=== PATIENT | male | born 1950 | race Caucasian/White ===

== ENCOUNTER 2018-04-17 12:41 | Observation (INO) ==
--- NOTE | 2018-04-17 13:50 | Emergency Department Note ---
Disposition Clinical Impression: Dizziness, Ataxia Disposition: Admitted As Inpatient Condition: Fair General Adult HPI - General Chief complaint: ED Dizziness Stated complaint: Vertigo Time Seen by Provider: 04/17/18 12:59 Source: patient, family Limitations: no limitations Nursing Notes Reviewed: Yes Vital Signs Reviewed: Yes - History of Present Illness HPI Narrative: Pt is a 67 year old male presenting to the emergency department for a 2 day complaint of dizziness associated with mild nausea w/o vomiting. Pt is a commercial trunk combine driver and states starting feeling the cab spinning around him and pulled over and was unable to continue driving and had to be driven home by family. Pt states previous history of vertigo that he states feels similar to his current presentation and denies any chest pain, sob, neurological deficits, lightheadness, syncope, vomiting, diarrhea or headaches. Otherwise pt denies any other complaints at this encounter and denies taking any medication to this point for the dizziness or nausea. The history, physical exam, and medical decision making was performed by the medical student either while I was physically present and actively involved or I personally re-performed the exam and medical decision making. I have verified the accuracy of the medical student's documentation with regards to the history, physical exam findings, and medical decision making. 67-year-old male presents emergency department for concern for today complaining of dizziness associated with nausea vomiting. Patient states that he feels as if the room is spinning. This been going on for couple days. Patient has been falling more frequently last couple weeks. Patient reports some blurry vision changes. Patient denies any fevers, but does report vomiting and nausea. Onset (ago): day(s) Location: head Radiation: non-radiation Pain Severity: mild Pain Scale: 0 - Related Data Home Medications Medication Instructions Recorded Confirmed Omeprazole [PriLOSEC] 20 mg PO BIDAC 10/17/15 04/17/18 Citalopram [CeleXA] 20 mg PO DAILY 04/17/18 04/17/18 Losartan Potassium [Cozaar] 50 mg PO DAILY 04/17/18 04/17/18 Meloxicam 7.5 mg PO DAILY 04/17/18 04/17/18 Allergies Allergy/AdvReac Type Severity Reaction Status Date / Time No Known Allergies Allergy Verified 04/17/18 12:49 All systems ED: reviewed and negative except as stated. Review of Systems: As Per HPI Constitutional: Denies: fever, chills, weakness, night sweats Eyes: Reports: vision change (Blurry vision). Denies: eye pain, eye discharge ENT ED: Denies: ear pain, throat pain, dental pain, hearing loss Cardiovascular: Denies: chest pain, palpitations, dyspnea on exertion, orthopnea Respiratory: Denies: cough, dyspnea, wheezes Gastrointestinal: Reports: nausea. Denies: abdominal pain, vomiting, diarrhea Genitourinary: Denies: urgency, dysuria, frequency, hematuria Musculoskeletal: Denies: back pain, neck pain, joint swelling Integumentary: Denies: rash Neurological: Reports: vertigo. Denies: headache, weakness, numbness, paresthesias, confusion Psychiatric: Denies: anxiety, depression, suicidal thoughts, homicidal thoughts Endocrine: Denies: fatigue, heat or cold intolerance Past Medical History - Past Medical History Source: patient Medical history: Reports: no medical history, hypertension Psychiatric history: Reports: depression - Social History Smoking Status: Never smoker Smokeless Tobacco Status: No Alcohol use: Reports: none Drug use: Reports: none Physical Exam - General Limitations: no limitations General appearance: alert, in no apparent distress - Head Head exam: atraumatic, normocephalic - Eye Eye exam: Present: PERRL, EOMI, nystagmus (horizontal nystagmus bilateral). Absent: conjunctival injection - ENT ENT exam: normal exam, normal oropharynx, mucous membranes moist, TM's normal bilaterally, normal external ear exam, other (Positive Rocky Hallpike Maneuver ) - Neck Neck exam: Present: normal inspection, trachea midline - Chest Chest inspection: Present: normal inspection, symmetric chest wall rise - Respiratory Respiratory exam: Present: normal lung sounds bilaterally. Absent: respiratory distress, wheezes, stridor - Cardiovascular Cardiovascular exam: Present: regular rate, normal rhythm, normal heart sounds - Abdominal Exam Abdominal exam: Present: soft, Non-Tender, normal bowel sounds - Extremities Exam Extremities exam: Present: normal capillary refill - Back Exam Back exam: Present: full ROM - Neurological Exam Neurological exam: Present: alert, oriented X3, CN II-XII intact, other (GCS 15, no pronator drift, normal finger to nose. No focal neurologic deficits left- sided nystagmus.). Absent: motor sensory deficit - Psychiatric Psychiatric exam: Present: normal affect, normal mood - Skin Skin exam: Present: warm, intact Course Vital Signs Temperature 97.8 F 04/17/18 12:48 Pulse Rate 76 04/17/18 12:48 Respiratory Rate 18 04/17/18 12:48 Blood Pressure 159/101 04/17/18 12:48 O2 Sat by Pulse Oximetry 99 04/17/18 12:48 Temperature 97.7 F 04/17/18 20:46 Pulse Rate 72 04/17/18 20:46 Respiratory Rate 16 04/17/18 20:46 Blood Pressure 146/91 04/17/18 20:46 O2 Sat by Pulse Oximetry 95 04/17/18 20:46 Oxygen Delivery Oxygen Delivery Room Air Medical Decision Making - MDM Narrative Medical decision making narrative: 67-year-old male presents to the emergency department with concern for vertigo, nausea, vomiting, inability to ambulate. Patient was given meclizine as well as Valium here in the emergency department help with the symptoms and fluids. This is not helping his of his symptoms. Patient did not have any neurologic deficits on exam. GCS is 15. Do not have any pronator drift. NIH was 0. F andrew to nose was normal as well. We will obtain MRI of the brain as well as of the neck for concern for posterior stroke. There was no evidence of any posterior stroke. However, on head MRI there was a prominent appearing pituitary gland which could represent pituitary macroadenoma per radiology. Her recommendations to get a dedicated MRI the sella. I spoke with neurology, Dr. Gil on the phone. He stated that the symptoms of the patient's having it would be inconsistent with the possibility of a macroadenoma. He did agree to consult on the case. Patient was ambulated here in the emergency department, and did not tolerate it. He was not even able to leave the room. At that time, it was discussed with family patient at bedside about admission. They agreed with the plan as they were concerned that patient may fall at home. Patient admitted to the hospitalist. Patient hemogram crit stable, not in any acute distress. I ordered more medications at time of admission. Brain MRI 04/17/18 00:00 IMPRESSION: No acute infarct. No flow limiting stenosis or branch occlusion detected within the head or neck. Prominent appearing pituitary gland which could present pituitary macroadenoma. Recommend dedicated MRI of the sella with and without contrast for further evaluation. D/ / Juan Pineda MD / Juan Pineda MD Interpreting Provider: Juan Pineda MD Head MRA 04/17/18 15:20 IMPRESSION: No acute infarct. No flow limiting stenosis or branch occlusion detected within the head or neck. Prominent appearing pituitary gland which could present pituitary macroadenoma. Recommend dedicated MRI of the sella with and without contrast for further evaluation. D/ / Juan Pineda MD / Juan Pineda MD Interpreting Provider: Juan Pineda MD Neck MRA 04/17/18 15:20 IMPRESSION: No acute infarct. No flow limiting stenosis or branch occlusion detected within the head or neck. Prominent appearing pituitary gland which could present pituitary macroadenoma. Recommend dedicated MRI of the sella with and without contrast for further evaluation. D/ / Juan Pineda MD / Juan Pineda MD Interpreting Provider: Juan Pineda MD - Lab Data Result diagrams: 04/17/18 15:21 04/17/18 15:21 Lab Results 04/17/18 04/17/18 04/17/18 Range/Units 13:39 15:21 15:21 WBC 8.9 (4.3-11.1) K/mcL RBC 5.41 (4.19-5.50) M/mcL Hgb 16.6 (12.9-16.9) g/dL Hct 49.1 (37.5-50.1) % MCV 90.8 (83.0-100.0) fL MCH 30.7 (28.0-33.3) pg MCHC 33.8 (31.6-35.5) g/dL RDW 14.2 (11.5-14.5) % Plt Count 167 (140-400) K/mcL MPV 9.6 (9.4-12.4) fL Immature Gran % 0.6 (0-4) % Seg Neutrophils % 62.8 % Lymphocytes % 27.0 % Monocytes % 6.3 % Eosinophils % 2.7 % Basophils % 0.6 % Neutrophils # 5.6 (1.6-8.9) K/mcL Lymphocytes # 2.4 (0.6-4.6) K/mcL Monocytes # 0.6 (0.0-1.3) K/mcL Eosinophils # 0.2 (0.0-0.6) K/mcL Basophils # 0.1 (0.0-0.2) K/mcL Sodium 138 (136-145) mEq/L Potassium 4.0 (3.5-5.1) mEq/L Chloride 102 (98-107) mEq/L Carbon Dioxide 29 (23-29) mEq/L BUN 25 H (8-23) mg/dL Creatinine 0.90 (0.70-1.30) mg/dL Est GFR ( Amer) > 60 (> 60) Est GFR (Non-Af Amer) > 60 (> 60) BUN/Creatinine Ratio 28 H (6-26) Glucose 101 (70-105) mg/dL POC Glucose 108 H (70-99) mg/dL Calculated Osmolality 291 (280-300) Calcium 9.1 (8.6-10.3) mg/dL - EKG Data EKG #1 EKG attestation: Yes I reviewed and interpreted this EKG. EKG results narrative: 13:25 Rate 69 bpm, WI interval 148 ms, QRS duration 94 ms, QT 435 ms, left axis deviation. Sinus rhythm ventricular rate 69 beats for minute. No evidence of any ischemic ST changes on the EKG. No evidence of Bgrgi-[id number]-[id number] syndrome, hypertrophic cardiomyopathy, arithmetic right ventricular cart he myopathy, Brugada syndrome, QT prolongation. Attestation Statement - Attestation Attestation: I, Sb Martin DO, examined this patient [id number] and my medical decision-making was reviewed with Dr. Keven Bedoya, Resident Physician. I agree with the documented findings, disposition and treatment plan as described excep t to the extent set forth below. Please see my progress notes for details.
[2018-04-17] MEDS ORDERED: diazePAM 5 MG TABLET PO ONE ×2 (13:51→18:13)
[2018-04-17] MEDS ORDERED: Gadolinium Contrast Agent (WT Based) IV PRN (15:20)
--- NOTE | 2018-04-17 15:59 | Emergency Department Note ---
Disposition Clinical Impression: Dizziness, Ataxia Disposition: Admitted As Inpatient Condition: Fair Referrals: Evans Motta MD [Primary Care Provider] - Forms: ED Satisfaction Letter Time of Disposition: 19:34 General Adult HPI - General Chief complaint: ED Dizziness Stated complaint: Vertigo Time Seen by Provider: 04/17/18 12:59 Source: patient, family Limitations: no limitations - History of Present Illness Location: head Pain Scale: 0 - Related Data Home Medications Medication Instructions Recorded Confirmed Losartan [Cozaar] 25 mg PO DAILY 10/17/15 03/17/18 Omeprazole [PriLOSEC] 20 mg PO BIDAC 10/17/15 03/17/18 Previous Rx's Medication Instructions Recorded Benzonatate [Tessalon] 200 mg PO TID PRN #30 capsule 08/07/16 GuaiFENesin ER [Mucinex] 1,200 mg PO BID #20 tbbp.12hr 08/07/16 Benzonatate [Tessalon] 200 mg PO TID PRN #20 capsule 06/21/17 Fluticasone Propionate Nasal 1 spray NS DAILY #1 bottle 06/21/17 [Flonase] Cyclobenzaprine [Flexeril] 10 mg PO TID #15 tablet 10/24/17 Ibuprofen [Motrin] 600 mg PO Q6HR PRN #24 tab 10/24/17 Azithromycin [Azithromycin 6-Tab 250 mg PO PER PKG DI #6 tab 03/17/18 Pack] Benzonatate [Tessalon] 100 mg PO TID #30 capsule 03/17/18 Allergies Allergy/AdvReac Type Severity Reaction Status Date / Time No Known Allergies Allergy Verified 04/17/18 12:49 Constitutional: Denies: fever, chills, weakness, night sweats Eyes: Denies: eye pain, eye discharge, vision change ENT ED: Denies: ear pain, throat pain, dental pain, hearing loss Cardiovascular: Denies: chest pain, palpitations, dyspnea on exertion, orthopnea Respiratory: Denies: cough, dyspnea, wheezes Gastrointestinal: Reports: nausea. Denies: abdominal pain, vomiting, diarrhea Genitourinary: Denies: urgency, dysuria, frequency, hematuria Musculoskeletal: Denies: back pain, neck pain, joint swelling Integumentary: Denies: rash Neurological: Reports: vertigo. Denies: headache, weakness, numbness, paresthesias, confusion Psychiatric: Denies: anxiety, depression, suicidal thoughts, homicidal thoughts Endocrine: Denies: fatigue, heat or cold intolerance Past Medical History - Past Medical History Medical history: Reports: no medical history, hypertension Psychiatric history: Reports: depression - Social History Smoking Status: Never smoker Smokeless Tobacco Status: No Alcohol use: Reports: none Drug use: Reports: none Physical Exam - General Limitations: no limitations General appearance: alert, in no apparent distress Course Vital Signs Temperature 97.8 F 04/17/18 12:48 Pulse Rate 76 04/17/18 12:48 Respiratory Rate 18 04/17/18 12:48 Blood Pressure 159/101 04/17/18 12:48 O2 Sat by Pulse Oximetry 99 04/17/18 12:48 Temperature 97.8 F 04/17/18 13:14 Pulse Rate 76 04/17/18 13:14 Respiratory Rate 18 04/17/18 13:14 Blood Pressure 159/101 04/17/18 13:14 O2 Sat by Pulse Oximetry 99 04/17/18 13:14 Oxygen Delivery Oxygen Delivery Room Air Medical Decision Making - Lab Data Result diagrams: 04/17/18 15:21 04/17/18 15:21 Lab Results 04/17/18 04/17/18 04/17/18 Range/Units 13:39 15:21 15:21 WBC 8.9 (4.3-11.1) K/mcL RBC 5.41 (4.19-5.50) M/mcL Hgb 16.6 (12.9-16.9) g/dL Hct 49.1 (37.5-50.1) % MCV 90.8 (83.0-100.0) fL MCH 30.7 (28.0-33.3) pg MCHC 33.8 (31.6-35.5) g/dL RDW 14.2 (11.5-14.5) % Plt Count 167 (140-400) K/mcL MPV 9.6 (9.4-12.4) fL Immature Gran % 0.6 (0-4) % Seg Neutrophils % 62.8 % Lymphocytes % 27.0 % Monocytes % 6.3 % Eosinophils % 2.7 % Basophils % 0.6 % Neutrophils # 5.6 (1.6-8.9) K/mcL Lymphocytes # 2.4 (0.6-4.6) K/mcL Monocytes # 0.6 (0.0-1.3) K/mcL Eosinophils # 0.2 (0.0-0.6) K/mcL Basophils # 0.1 (0.0-0.2) K/mcL Sodium 138 (136-145) mEq/L Potassium 4.0 (3.5-5.1) mEq/L Chloride 102 (98-107) mEq/L Carbon Dioxide 29 (23-29) mEq/L BUN 25 H (8-23) mg/dL Creatinine 0.90 (0.70-1.30) mg/dL Est GFR ( Amer) > 60 (> 60) Est GFR (Non-Af Amer) > 60 (> 60) BUN/Creatinine Ratio 28 H (6-26) Glucose 101 (70-105) mg/dL POC Glucose 108 H (70-99) mg/dL Calculated Osmolality 291 (280-300) Calcium 9.1 (8.6-10.3) mg/dL Attestation Statement - Attestation Attestation: I, Sb Martin DO, examined this patient [id number] and my medical decision-making was reviewed with Dr. Keven Bedoya, Resident Physician. I agree with the documented findings, disposition and treatment plan as described except to the extent set forth below. Please see my progress notes for details. 67-year-old male presents to the emergency room with what he describes as vertigo. He says that these had this on and off for multiple years. It has been coming more frequently here recently. He has never had a detailed workup completed in the past for vertigo. He does have a history of high blood pressure. He denies any history of stroke. 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 He denies any chest pain, shortness of breath, headache, vision changes. He has had persistent nausea with no specific vomiting unless he eats food. Denies any diarrhea. He has not fallen or injured himself anytime here recently. He denies any new medications. Vital signs otherwise unremarkable on presentation. His physical exam shows a well- appearing gentleman. His symptoms have been present for approximately 48 hours based on his description but they waxed and waned during that time. Today they have been persistent even since last night before he went to bed. His pupils are equal round reactive. He does not have any rotatory nystagmus but does have fatigable lateralizing nystagmus to the left. His pupils are equal round reactive his extraocular muscles are intact. No visible signs of facial asymmetry but subjectively on my examination there may be slight lip leg and left side. Patient has had persistent neck pain even prior to the events 48 hours ago. His heart is regular his lungs are clear. He has no visible cerebellar function deficits at this time. He is ataxic when he stands and walks or when he rotated his head quickly side to side. He has normal motor fu nction in the upper and lower extremities. Otherwise his examination is benign. The patient's symptoms do appear to be reproducible. He meets the criteria for at least acute vertigo but because of the persistence of the timeframe as well as the progressively worsening episodes there is some concern from the family for possible stroke. With a lengthy discussion about posterior circulation strokes and the rarity context of the presentation symptoms and the persistence of the symptoms. Decided that MRI would be the most efficacious evaluation here in the emergency room. MRI of the head and neck will be completed looking for vascular related abnormality. If this is negative then the patient will safely be discharged home. See detailed documentation of the physical exam, medical intervention, medical decision-making and disposition in the resident physician's note. No critical care applied to the patient's treatment course at this time. Patient does not meet any criteria for acute stroke workup or evaluation. He has a NIH of 0. Patient is well outside the window for acute pharmacologic intervention 1900 MRIs unremarkable for acute stroke or vascular insufficiency. 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 This information was discussed and reviewed with the on-call neurologist Dr. mujica to make sure that there is nothing acute that needs to be addressed secondary to the findings. He agreed that the patient would be appropriate for follow-up. He is ambulatory. We attempted to get the patient to walk-in and he had significant dizziness to the point where took 3 people to hold him up. At this point is determined that the patient is unstable to be discharged home despite multiple medical interventions provided and detailed workup completed. He will be admitted for symptomatic treatment and evaluation. No other acute etiology noted this time. Patient was discussed with the hospitalist Dr. Stringer. They did recommend orthostatic blood pressu res be collected but otherwise are happy to accept the patient further evaluation and continuation of care. No other acute issues noted this point patient is otherwise clinically stable. He will be monitoring emergency room until admission processes has been established.
[2018-04-17 16:02] LABS: Basophils # 0.1 K/mcL (0.0-0.2); Basophils % 0.6 %; Eosinophils # 0.2 K/mcL (0.0-0.6); Eosinophils % 2.7 %; Hematocrit 49.1 % (37.5-50.1); Hemoglobin 16.6 g/dL (12.9-16.9); Immature Granulocytes % 0.6 % (0-4); Lymphocytes # 2.4 K/mcL (0.6-4.6); Mean Corpuscular HGB Conc 33.8 g/dL (31.6-35.5); Mean Corpuscular Hemoglobin 30.7 pg (28.0-33.3); Mean Corpuscular Volume 90.8 fL (83.0-100.0); Mean Platelet Volume 9.6 fL (9.4-12.4); Monocytes # 0.6 K/mcL (0.0-1.3); Monocytes % 6.3 %; Neutrophils # 5.6 K/mcL (1.6-8.9); Platelet Count 167 K/mcL (140-400); Red Blood Count 5.41 M/mcL (4.19-5.50); Red Cell Distribution Width 14.2 % (11.5-14.5); Segmented Neutrophils % 62.8 %
[2018-04-17 16:20] LABS: BUN/Creatinine Ratio 28 (6-26); Blood Urea Nitrogen 25 mg/dL (8-23); Calcium 9.1 mg/dL (8.6-10.3); Carbon Dioxide 29 mEq/L (23-29); Chloride 102 mEq/L (98-107); Glucose 101 mg/dL (70-105); Osmolality,Calculated 291 (280-300); Sodium 138 mEq/L (136-145); eGFR For Non-African Americans > 60 (> 60)
[2018-04-17] MEDS ORDERED: 0.9 % Sodium Chloride 1,000 ML IVC ONE (16:55)
[2018-04-17] MEDS ORDERED: Ondansetron 4 MG/2 ML VIAL IVP STA (18:39)
[2018-04-17] MEDS ORDERED: Scopolamine Patch 1.5 MG PATCH.TD72 TD ONE (18:39)
--- NOTE | 2018-04-17 19:30 | Internal Med History&Physical ---
<Sandra Cook N - Last Filed: 04/17/18 21:34> Date of Encounter: 04/17/18 Time of Encounter: 19:30 Internal Medicine - H&P: HPI Chief complaint: Vertigo Admitted From: Emergency Dept History of present illness: Mr. Montgomery is a 67 year old male with a history of hypertension and GERD. He presented to the ED complaining of vertigo 2 days. He reports 2 prior incidence of vertigo, with the first occurring approximately 7 years ago while driving, and the second occurring approximately 3 years ago while working in the [employer]. He reported good relief with meclizine during past incidents. He reports that he received this the flu and pneumonia vaccination Monday evening, after which he reports consuming a large amount of chocolate and soft drinks. He states that this tends to cause his GERD to flare up, and he experienced the expected nausea, vomiting, and dizziness afterward. He states that his symptoms started at 7 AM on Monday. He states that it feels like the room is spinning, and is associated with nausea and photosensitivity. He states that he had some meclizine at home, which he did take though it was out of date; however, this did not alleviate his symptoms. At the time of presentation to the ED, his symptoms have been waxing and waning for approximately 36 hours. Per ED documentation, patient was initially unable to ambulate due to the severity of his dizziness. Initial vital signs were as followed: Temperature 97.8, HR 76, RR 18, and BP 159/101. Patient underwent brain MRI and CVA of the head and neck, which demonstrated no flow limiting stenosis or branch occlusion. A prominent appearing pituitary gland was noted, which could present pituitary macroadenoma, for which the radiologist recommended further dedicated MRI of the sella. The patient is a retired nurse, and denies any symptoms that could be attributed to a pituitary mass. Patient was admitted to the hospitalist service pending neurology evaluation of possible macroadenoma. Patient was seen and evaluated at the bedside while in the ED waiting bed placement. He reports improvement in his symptoms, which he attributes to a recent dose of meclizine. He denies any photophobia or acute vertigo at this time. Review of systems is significant for productive cough for the last several days. Patient denies any other visual changes, including blurred vision or black spots. He denies any headaches, sinus pressure, chest pain, shortness of breath, or numbness/weakness of the extremities. Past Med Surg Social Fam HX - Past Medical History Medical history: no medical history, hypertension Psychiatric history: depression - Past Surgical History Additional surgical history: craniotomy - Social History Smoking Status: Never smoker Smokeless Tobacco Status: No Alcohol use: none Drug use: none - Family History Brother Hx Family Cancer: Yes (Stomach cancer) Grandmother Hx Family Cancer: Yes (Ovarian/breast cancer) Hx Family Endocrine Disorder: Yes (DM) Hx Family Neurologic Disorders: Yes (CVA) Sister Hx Family Cancer: Yes (breast cancer) Hx Family Endocrine Disorder: Yes (DM) Hx Family Neurologic Disorders: Yes (CVA) Internal Medicine - H&P: Meds RX: Omeprazole [PriLOSEC] 20 mg PO BIDAC 10/17/15 [History] Citalopram [CeleXA] 20 mg PO DAILY 04/17/18 [History] Losartan Potassium [Cozaar] 50 mg PO DAILY 04/17/18 [History] Meloxicam 7.5 mg PO DAILY 04/17/18 [History] Allergy/AdvReac Type Severity Reaction Status Date / Time No Known Allergies Allergy Verified 04/17/18 12:49 All Systems PM: A 10-system review of systems was performed and is negative for pertinent findings except as documented above in the HPI. - Constitutional Vitals: Temp Pulse Resp BP Pulse Ox 97.8 F 76 18 159/101 99 04/17/18 13:14 04/17/18 13:14 04/17/18 13:14 04/17/18 13:14 04/17/18 13:14 Exam: GENERAL: Pleasant adult male resting in bed comfortably with the overhead light dimmed. He does not appear to be any acute distress. His is present at the bedside. HEENT: Atraumatic and normocephalic. Oral mucosa is moist. NECK: Soft and nontender. No thyromegaly or lymphadenopathy. No carotid bruits appreciated. CARDIOVASCULAR: Regular rate and rhythm. S1 and S2 present. No murmurs, gallops, or rubs. RESPIRATORY: CTA bilaterally. Chest rises and falls symmetrically with respiration. No accessory muscle use noted. GASTROINTESTINAL: Soft, nondistended, and nontender. EXTREMITIES: No clubbing, cyanosis, or edema. SKIN: Warm, dry, and intact. NEUROLOGIC: A&O 3. Patient is cooperative with exam and answers questions appropriately. Cranial nerves II through XII intact. 5/5 muscle strength in bilateral upper and lower extremities. Positive Romberg on initial testing; however, repeat test was negative. Internal Med - H&P Results - Labs CBC & Chem 7: 04/17/18 15:21 04/17/18 15:21 Labs: Short CBC 04/17/18 Range/Units 15:21 WBC 8.9 (4.3-11.1) K/mcL Hgb 16.6 (12.9-16.9) g/dL Hct 49.1 (37.5-50.1) % Plt Count 167 (140-400) K/mcL Neutrophils # 5.6 (1.6-8.9) K/mcL BMP 04/17/18 15:21 Sodium 138 Potassium 4.0 Chloride 102 Carbon Dioxide 29 BUN 25 H Creatinine 0.90 Glucose 101 Calcium 9.1 - Impressions ITS Impressions Brain MRI 04/17/18 00:00 IMPRESSION: No acute infarct. No flow limiting stenosis or branch occlusion detected within the head or neck. Prominent appearing pituitary gland which could present pituitary macroadenoma. Recommend dedicated MRI of the sella with and without contrast for further evaluation. D/ / Juan Pineda MD / Juan iPneda MD Interpreting Provider: Juan Pineda MD Head MRA 04/17/18 15:20 IMPRESSION: No acute infarct. No flow limiting stenosis or branch occlusion detected within the head or neck. Prominent appearing pituitary gland which could present pituitary macroadenoma. Recommend dedicated MRI of the sella with and without contrast for further evaluation. D/ / Juan Pineda MD / Juan Pineda MD Interpreting Provider: Juan Pineda MD Neck MRA 04/17/18 15:20 IMPRESSION: No acute infarct. No flow limiting stenosis or branch occlusion detected within the head or neck. Prominent appearing pituitary gland which could present pituitary macroadenoma. Recommend dedicated MRI of the sella with and without contrast for further evaluation. D/ / Juan Pineda MD / Juan Pineda MD Interpreting Provider: Juan Pineda MD - Assessment and plan (1) Vertigo Current Visit: Yes Status: Acute Assessment and plan: Unclear etiology. MRI of brain was significant for prominant-appearing pituitary that could indicate macroadenoma; however, patient is a retired nurse and denies any associated signs or symptoms. - Neurology consult placed by ED physician - Scopolamine patch placed in ED - Consider additional meclizine PRN recurrent symptoms - Fall precautions (2) Hypertension Current Visit: Yes Status: Acute Assessment and plan: Patient reports his blood pressure normally be 130s/80-90s; however, blood pressure in the ED during history and physical was noted to be 176/120. Patient does report history of "white coat hypertension". - Repeat BP readings with manual cuff in bilateral upper extremities - Continue home medication of losartan 50mg daily Qualifiers: Hypertension type: essential hypertension Qualified Code(s): I10 - Essential (primary) hypertension (3) GERD (gastroesophageal reflux disease) Current Visit: Yes Status: Acute Assessment and plan: - Continue home medication of omeprazole 20mg BID. Qualifiers: Esophagitis presence: esophagitis presence not specified Qualified Code(s): K21.9 - Gastro-esophageal reflux disease without esophagitis (4) DVT prophylaxis Current Visit: Yes Status: Acute Assessment and plan: - Heparin 5000units SQ Q8H - Time Spent With Patient Total time spent is greater than 50% in coordination of care (as documented) at patient's floor/unit and/or counseling patient: <Rosie Galeano - Last Filed: 04/17/18 23:41> Date of Encounter: 04/17/18 Internal Medicine - H&P: HPI History of present illness: Mr. Montgomery is a 67 year old male All Systems PM: A 10-system review of systems was performed and is negative for pertinent findings except as documented above in the HPI. - Constitutional Vitals: Temp Pulse Resp BP Pulse Ox 97.7 F 72 16 146/91 95 04/17/18 20:46 04/17/18 20:46 04/17/18 20:46 04/17/18 20:46 04/17/18 20:46 Internal Med - H&P Results - Labs CBC & Chem 7: 04/17/18 15:21 04/17/18 15:21 Labs: Short CBC 04/17/18 Range/Units 15:21 WBC 8.9 (4.3-11.1) K/mcL Hgb 16.6 (12.9-16.9) g/dL Hct 49.1 (37.5-50.1) % Plt Count 167 (140-400) K/mcL Neutrophils # 5.6 (1.6-8.9) K/mcL BMP 04/17/18 15:21 Sodium 138 Potassium 4.0 Chloride 102 Carbon Dioxide 29 BUN 25 H Creatinine 0.90 Glucose 101 Calcium 9.1 - Impressions ITS Impressions Brain MRI 04/17/18 00:00 IMPRESSION: No acute infarct. No flow limiting stenosis or branch occlusion detected within the head or neck. Prominent appearing pituitary gland which could present pituitary macroadenoma. Recommend dedicated MRI of the sella with and without contrast for further evaluation. D/ / Juan Pineda MD / Juan Pineda MD Interpreting Provider: Juan Pineda MD Head MRA 04/17/18 15:20 IMPRESSION: No acute infarct. No flow limiting stenosis or branch occlusion detected within the head or neck. Prominent appearing pituitary gland which could present pituitary macroadenoma. Recommend dedicated MRI of the sella with and without contrast for further evaluation. D/ / Juan Pineda MD / Juan Pineda MD Interpreting Provider: Juan Pineda MD Neck MRA 04/17/18 15:20 IMPRESSION: No acute infarct. No flow limiting stenosis or branch occlusion detected within the head or neck. Prominent appearing pituitary gland which could present pituitary macroadenoma. Recommend dedicated MRI of the sella with and without contrast for further evaluation. D/ / Juan Pineda MD / Juan Pineda MD Interpreting Provider: Juan Pineda MD - Assessment and plan (1) Vertigo Current Visit: Yes Status: Acute (2) Hypertension Current Visit: Yes Status: Acute Qualifiers: Hypertension type: essential hypertension Qualified Code(s): I10 - Essential (primary) hypertension (3) GERD (gastroesophageal reflux disease) Current Visit: Yes Status: Acute Qualifiers: Esophagitis presence: esophagitis presence not specified Qualified Code(s): K21.9 - Gastro-esophageal reflux disease without esophagitis (4) DVT prophylaxis Current Visit: Yes Status: Acute - Time Spent With Patient Total time spent is greater than 50% in coordination of care (as documented) at patient's floor/unit and/or counseling patient: - Attending Attestation I performed a history and physical exam of the patient and discussed management with the resident. I reviewed the resident's note and agree with the documented findings and plan of care.The patient will require neurology evaluation for his vertigo as acute infarct has been ruled out. Unclear of the suspicious adenoma findings are related however based on the location it shouldn't. Will place on observation status overnight pending consultation. ZANE LANDRY.
[2018-04-17] MEDS: *HR* Heparin 5,000 UNIT/ML VIAL SQ SCH (21:10)
[2018-04-18] MEDS: *HR* Heparin 5,000 UNIT/ML VIAL SQ SCH (05:00)
--- NOTE | 2018-04-18 08:43 | Neurology - Consult Note ---
Addendum entered and electronically signed by Venancio Sanchez MD 04/18/18 13:24: Case discussed with Dr. Brian Clements before the patient could be seen. Imaging studies reviewed together and i agree with his history taking, assessment and plan outlined below. Patient developed his typical spell of dizziness which was reported more prolonged than usual spells but he recovered to baseline. As far as the finding of pituitary gland macroadenoma will suggest laboratory testing for check whether this hormonal secreting or non-hormonal secreting macroadenoma. 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 On exam patient has intact visual field testing, does not have signs of prostatic enlargement. We will order TSH, FSH, LH, ACTH, IGF-[address] Sanchez outpatient. (2) Vertigo Current Visit: Yes Status: Acute Patient has positive Northridge-Hallpike maneuver to the right with rightward nystagmus. His symptoms have mostly resolved this morning. He is able to tolerate his diet does not have nausea and is able to ambulate. MRI of the brain is negative for CVA. Patient has a history of vertigo which is treated with meclizine in the past. Also has a history of tinnitus from being in the Plan: recommend ENT evaluation outpatient for vestibular rehabilitation. History of Present Illness Chief complaint: vertigo HPI: Mr. Montgomery is a 67 year old male presented with chief complaint of vertigo. Patient has had a history of vertigo in the past which has been relieved by meclizine. Patient vertigo started Monday morning where he had room spinning sensation when he was unable to ambulate and Falling to the right. This occurred as soon as he woke up and he had difficulty getting to the bathroom. She also had nausea and photosensitivity. He denied double vision, slurred speech, weakness, numbness, tingling, dysphagia. Upon arrival to the ED he continued to have the symptoms. But they did improve with meclizine. He underwent brain MRI which was negative for CVA but did show a finding of pituitary macroadenoma measuring 13 mm in height. Patient denies blurry vision, decreased peripheral vision, weight loss, weight gain, intolerance to heat or cold, breast enlargement, nipple discharge, constipation, diarrhea, headache. Past Med Surg Social Fam HX - Past Medical History Medical history: no medical history, hypertension Psychiatric history: depression - Past Surgical History Surgical History: cholecystectomy Additional surgical history: craniotomy - Social History Smoking Status: Never smoker Smokeless Tobacco Status: No Alcohol use: none Drug use: none - Family History Sister Hx Family Cancer: Yes (breast cancer) Hx Family Endocrine Disorder: Yes (DM) Hx Family Neurologic Disorders: Yes (CVA) Grandmother Hx Family Cancer: Yes (Ovarian/breast cancer) Hx Family Endocrine Disorder: Yes (DM) Hx Family Neurologic Disorders: Yes (CVA) Brother Hx Family Cancer: Yes (Stomach cancer) Medications and Allergies Omeprazole [PriLOSEC] 20 mg PO BIDAC 10/17/15 [History] Citalopram [CeleXA] 20 mg PO DAILY 04/17/18 [History] Losartan Potassium [Cozaar] 50 mg PO DAILY 04/17/18 [History] Meloxicam 7.5 mg PO DAILY 04/17/18 [History] Allergy/AdvReac Type Severity Reaction Status Date / Time No Known Allergies Allergy Verified 04/17/18 12:49 All Systems: The remainder of the systems were reviewed and are negative Review of Systems: Constitutional: Denies fever, chills HEENT: Denies headache, trauma, blurry vision, eye discharge, ear pain, ear discharge neck pain, sore throat, rhinorrhea Heart: Denies chest pain palpitations, LE edema Lungs: Denies shortness of breath cough Abdomen: Denies abdominal pain nausea vomiting diarrhea MSK: Denies back pain, falls, joint pain Kidney: Denies dysuria, hematuria Skin: Denies rash, ulcers Neuro: As per history of present illness Psych: denies axniety, depression Physical Examination - Vital Signs Vital Signs: Initial Vital Signs Temp Pulse Resp BP Pulse Ox 97.8 F 76 18 159/101 99 04/17/18 12:48 04/17/18 12:48 04/17/18 12:48 04/17/18 12:48 04/17/18 12:48 - Exam Exam: General: pleasant, without distress HEENT: Head atraumatic, normocephalic, EOMI, PERRL, absent ear discharge or trauma, Moist Mucous Membranes, uvula midline Neck: nontender to palpation, absent lymphadenopathy, Cardiovascualr: Regular rate and rhythm with no murmur, absent gallops or rubs, absent pedal edema, radial pulses 2 out of 4 Lungs: Clear to auscultation bilaterally, not in respiratory distress Abdomen: Soft nontender, nondistended positive bowel sounds, absent hepatomegaly Skin: warm and dry, absent rash, absent open wounds and nodules MSK: absent clubbing, cyanosis, joints without swelling Psych: good insight and judgment Positive Northridge-Hallpike maneuver to the right. - Constitutional General appearance: comfortable - Neurologic Sensorimotor examination: intact Detailed motor examination: full strength in all major muscle groups Motor examination - right side: 5/5: deltoids, biceps, triceps, wrist flexion, wrist extension, health information assistant, hip flexors, tibialis Anterior, quadriceps, toe extension (EHL), plantarflexion Motor examination - left side: 5/5: deltoids, biceps, triceps, wrist flexion, wrist extension, hip flexors, health information assistant, quadriceps, tibialis Anterior, toe extension (EHL), plantarflexion Detailed sensory examination: intact Posture: other (None) Reflex and gait examination: intact Reflexes: Biceps: 1+, Triceps: 1+, Brachioradialis: 1+, Patella: 1+, Achilles: 1+ Mental Status Examination: awake, alert, oriented to person, oriented to place, oriented to time, follows commands appropriately, answers questions appropriately, no agnosia, no aphasia, no aproxia Cranial nerve examination: PERRL, EOMI, visual mcdaniels intact, sensory to face intact, mastication intact, no facial asymmetry is present, no dysarthria, hearing is intact symmetrically, soft palate elevates bilaterally upon phonation, flexes SCM and trapezius muscles symmetrically with full power, tongue protrudes midline, no atrophy or facial fasiculations present Cerebellar examination: no dysmetria, performs finger to nose and heel to bansal symmetrically without ataxia, no gait ataxia, no truncal ataxia, no difficulty with rapid alternating movements Ocular dysmotility: gaze-evoked nystagmus (The right) Results - Laboratory Findings CBC and BMP: 04/17/18 15:21 04/17/18 15:21 Abnormal lab findings: Abnormal lab results BUN 25 mg/dL (8-23) H 04/17/18 15:21 BUN/Creatinine Ratio 28 (6-26) H 04/17/18 15:21 POC Glucose 108 mg/dL (70-99) H 04/17/18 13:39 Consult Discharge Plan - Plan Referrals: Evans Motta MD [Primary Care Provider] -
[2018-04-18 11:32] VITALS: BP 129/85
--- NOTE | 2018-04-18 11:34 | Discharge Summary ---
- NOTES TO OUTPATIENT PROVIDER Notes to Outpatient Provider: f/u with PCP in one week. f/u with ENT in one week. f/u with Neuro in 1-2 weeks. We ordered lab work FSH, SH, ACTH, prolactin and TSH..Please follow up with neurologist as outpatient regarding this lab work Orders not resulted at time of discharge: Pending orders 04/17/18 13:00 EKG [ECG 12 lead ECG] [ECG] Stat 04/18/18 11:02 ACTH Routine Follicle Stimulating Hormone Routine IGF-1 with calculated Z-Score Routine Luteinizing Hormone Routine Prolactin Routine Thyroid Stimulating Hormone Routine Date of Encounter: 04/18/18 Time of Encounter: 11:30 - Discharge Diagnosis (1) Benign positional vertigo Priority: Primary Status: Acute Qualifiers: Laterality: right Qualified Code(s): H81.11 - Benign paroxysmal vertigo, right ear (2) Vertigo Priority: Primary Status: Acute (3) Pituitary macroadenoma Priority: Secondary Status: Acute Hospital course: Mr. Montgomery is a 67 year old male with a history of hypertension and GERD. He presented to the ED complaining of vertigo 2 days. He reports 2 prior incidence of vertigo, with the first occurring approximately 7 years ago while driving, and the second occurring approximately 3 years ago while working in the [employer]. He reported good relief with meclizine during past incidents. Patient mentioned, he does have right-sided vertigo which is improved with the meclizine today. He had MRI of the brain done which did not show any acute infarction. However MRI showed an incidental finding of pituitary adenoma size at 13 mm. Patient does not have any symptoms associated with pituitary adenoma. We ordered lab work FSH, SH, ACTH, prolactin and TSH. Recommend to follow up with neurologist as outpatient regarding this lab work . For his recurrent vertigo also recommend to follow up with ENT outpatient.. Patient did mention he does have Walker at home, which his is going to use it now - Time Spent with Patient Total time spent providing and/or coordinating discharge services: - Discharge Medications Prescriptions: Meclizine HCl [Verticalm] 25 mg PO TID #40 tablet Home Medications: Omeprazole [PriLOSEC] 20 mg PO BIDAC 10/17/15 [History] Citalopram [CeleXA] 20 mg PO DAILY 04/17/18 [History] Losartan Potassium [Cozaar] 50 mg PO DAILY 04/17/18 [History] Meloxicam 7.5 mg PO DAILY 04/17/18 [History] Meclizine HCl [Verticalm] 25 mg PO TID #40 tablet 04/18/18 [Rx] Allergies/Adverse Reactions: 3 Allergy/AdvReac Type Severity Reaction Status Date / Time No Known Allergies Allergy Verified 04/17/18 12:49 Date of admission: 04/17/18 19:47 Primary care physician: Evans Motta MD Consults: 04/17/18 19:14 Consult to Neurology [CONS] Stat Consulting Provider: [facility] Reason for Consult: vertigo Call Completed: Yes - Constitutional Vitals: Temp Pulse Resp BP Pulse Ox 97.6 F 76 24 143/93 97 04/18/18 07:29 04/18/18 07:29 04/18/18 07:29 04/18/18 07:29 04/18/18 07:29 General appearance: Present: A&O X 3 Exam: Gen: Alert, awake, Oriented to time,place and person Chest: Diminished breath sounds B/L, No wheezing, No crackles, No rales Heart: S1S2+ RRR No murmurs Abd: Soft, NT, BS +, No organomegaly Ext: No edema, pulses are palpable, No calf tenderness Neuro : Still has mild vertigo Skin: No rash. - Patient Status Disposition: Home, Self-Care Condition: Good Overall status at discharge: patient is back to baseline - Discharge Instructions Follow Up With: Evans Motta MD [Primary Care Provider] - Keven Diaz DO [Partnered Physician] - Venancio Sanchez MD [Partnered Physician] -
[2018-04-18 11:54] LABS: Thyroid Stimulating Hormone 3.498 mcIU/mL (0.340-5.600)
[2018-04-18 12:00] LABS: Prolactin 5.38 ng/mL (3.00-14.70)
[2018-04-18 12:22] LABS: Follicle Stimulating Hormone 16.24 mIU/mL (1.42-15.40)
[2018-04-18 12:23] LABS: Luteinizing Hormone 4.8 mIU/mL (1.24-7.80)
== END 2018-04-18 12:15 | disposition home or self-care (01) ==
LOC: EMEROOARM 12:41 → 3BNU 12:41
PROVIDERS: ADMIT Internal Medicine; ATTEND Internal Medicine